=== PATIENT | male | born 1990 | race Two or more races ===

== ENCOUNTER 2016-08-02 18:29 | Emergency (ER) | payer BC ==
[2016-08-02 19:14] VITALS: RESP 18; TEMP 98
[2016-08-02] MEDS ORDERED: BUPIVACAINE (PF) 0.5% 30 ML VIAL SQ STA (19:57)
--- NOTE | 2016-08-02 20:01 | ED ---
ENT HPI - General Chief complaint: Dental/Oral Stated complaint: tooth pain Time Seen by Provider: 08/02/16 19:18 Source: patient, RN notes reviewed, old records reviewed Mode of arrival: ambulatory Limitations: no limitations - History of Present Illness Initial comments: Patient is a 25 year old male with chief complaint of left molar pain for one week. Patient reports he had a root canal on the same tooth one month ago. He states that he was taking his left over penicillin for the past 2 days. He denies any facial swelling, fevers, nausea, vomiting, chest pain. He reports the pain shoots up his face. Patient has been taking motrin for the pain. - Related Data Home Medications Medication Instructions Recorded Confirmed Fexofenadine/Pseudoephedrine 1 tab PO DAILY 08/02/16 08/02/16 [Susan-D 24 Hour Tablet] Previous Rx's Medication Instructions Recorded Acetaminophen-Codeine 300-30mg 1 tab PO Q6H PRN #15 tablet 08/02/16 [Tylenol #3] Penicillin V Potassium [Pen Vee K] 500 mg PO QID #10 tab 08/02/16 Allergies Allergy/AdvReac Type Severity Reaction Status Date / Time No Known Allergies Allergy Verified 08/02/16 19:44 Review of Systems ROS Statement: Those systems with pertinent positive or pertinent negative responses have been documented in the HPI. ROS Other: All systems not noted in ROS Statement are negative. Past Medical History Past Medical History: No Reported History History of Any Multi-Drug Resistant Organisms: None Reported Past Surgical History: No Surgical Hx Reported Past Psychological History: No Psychological Hx Reported Smoking Status: Current every day smoker Past Alcohol Use History: Occasional Past Drug Use History: None Reported General Exam - General Exam Comments Initial Comments: Well appearing 25 year old male, no acute distress. Limitations: no limitations General appearance: alert, in no apparent distress Head exam: Present: atraumatic, normocephalic, normal inspection Eye exam: Present: normal appearance, PERRL, EOMI. Absent: scleral icterus, conjunctival injection, periorbital swelling ENT exam: Present: normal exam, mucous membranes moist, TM's normal bilaterally. Absent: normal oropharynx (evidence of root canal in left posterior molar. ) Neck exam: Present: normal inspection, full ROM. Absent: tenderness, meningismus, lymphadenopathy Respiratory exam: Present: normal lung sounds bilaterally. Absent: respiratory distress, wheezes, rales, rhonchi, stridor Cardiovascular Exam: Present: regular rate, normal rhythm, normal heart sounds. Absent: systolic murmur, diastolic murmur, rubs, gallop, clicks GI/Abdominal exam: Present: soft, normal bowel sounds. Absent: distended, tenderness, guarding, rebound, rigid Extremities exam: Present: normal inspection, full ROM, normal capillary refill. Absent: tenderness, pedal edema, joint swelling, calf tenderness Back exam: Present: normal inspection Neurological exam: Present: alert, oriented X3, CN II-XII intact Psychiatric exam: Present: normal affect, normal mood Skin exam: Present: warm, dry, intact, normal color. Absent: rash Course Vital Signs 08/02/16 08/02/16 19:12 20:22 Temperature 98 F 98 F Pulse Rate 59 L 66 Respiratory 18 18 Rate Blood Pressure 122/75 117/78 O2 Sat by Pulse 99 99 Oximetry Procedures - Nerve Block Local Anesthetic Used: Marcaine 0.5% Amount of anesthesia used: 3 Side: left Intraoral Nerve Block: inferior alveolar Procedure Successful: Yes Complications: none Patient Tolerated Procedure: well, no complications Medical Decision Making - Medical Decision Making Patient is a 25 year old male with left lower molar pain for one week. Patient has no significant swelling or drainage around the tooth. I will prescribe penicillin as there is a possibility of a starting abscess. Patient given a nerve block, and refill for penicillin and pain medication. I advised to follow up with dentist as there is likely a problem with the root canal. Patient understands treatment plan and will comply. Disposition Clinical Impression: Dental implant pain Disposition: HOME SELF-CARE Condition: Good Instructions: Toothache (ED) Additional Instructions: Patient advised to complete her antibiotic prescription. Only take pain medication between Motrin Tylenol as needed. Follow-up with dentist since possible. Return to the [facility] if any alarming signs or symptoms occur. Prescriptions: Acetaminophen-Codeine 300-30mg [Tylenol #3] 1 tab PO Q6H PRN #15 tablet PRN Reason: Pain Penicillin V Potassium [Pen Vee K] 500 mg PO QID #10 tab Referrals: Himanshu Gardner MD [Primary Care Provider] - 1-2 days Time of Disposition: 20:01
[2016-08-02 20:23] VITALS: BP 117/78; PULSE 66
== END 2016-08-02 20:22 | disposition home or self-care (01) ==
LOC: EC 18:29
DX: K08.89 Other specified disorders of teeth and supporting structures (principal); F17.200 Nicotine dependence, unspecified, uncomplicated; Z79.899 Other long term (current) drug therapy
CPT/HCPCS: 64400; 99282